=== PATIENT | female | born 1970 | race Caucasian/White ===

== ENCOUNTER → 2019-04-30 | Outpatient (REF) | payer OTHER, MEDICARE ==
[~2019-04-30] MED LIST: ADV500INH INH; EPIP0.3I10 INJ; NEXI40GR PO; SING4GRA PO; SPIRIVA HANDIHALER INH; TOPA100T PO; VENTAER INH; XOLA150S SC
[2019-04-30 18:28] LABS: C REACTIVE PROTEIN QUANTITATIV < 0.30 MG/DL (0.00-0.30); RHEUMATOID FACTOR QUANT < 10.0 IU/ML (<15.0); URIC ACID 2.8 MG/DL (2.6-6.0)
[2019-05-02 14:07] LABS: ANTINUCLEAR ANTIBODIES DIRECT Negative (Negative)
== END ==
LOC: M LABDRAW1 17:07
PROVIDERS: ATTEND Orthopaedic Surgery
DX: M75.42 Impingement syndrome of left shoulder (principal)

== ENCOUNTER → 2022-09-29 | Outpatient (CLI) | payer MEDICARE, MEDICAID ==
[~2022-09-29] MED LIST changes: +ISOVUE-300 61% 100ML VIAL ONE; +LIDOCAINE 1% MDV 20ML VIAL ONE; +methylPREDNISolone SUSP 40MG/ML 1ML VIAL (DEPO MEDROL) ONE
== END ==
LOC: M PLAIMG 13:25
PROVIDERS: ATTEND Physician Assistant
DX: M75.42 Impingement syndrome of left shoulder (principal)
CPT/HCPCS: 20610; 77002; J1030; Q9967